=== PATIENT | female | born 1970 | race Caucasian/White ===

== ENCOUNTER → 2023-09-26 10:43 | Outpatient (REF) | payer BC, SELFPAY | LOC: HWWDC 10:43 | PROVIDERS: ATTENDING PHYSICIAN Obstetrics & Gynecology; FAMILY PHYSICIAN Family Medicine | DX: Z12.31 Encounter for screening mammogram for malignant neoplasm of breast (principal) | CPT/HCPCS: 77063; 77067 ==

== ENCOUNTER → 2023-10-10 09:35 | Outpatient (REF) | payer BC, SELFPAY | LOC: HWRAD 09:35 | PROVIDERS: ATTENDING PHYSICIAN Nurse Practitioner Family | DX: M54.41 Lumbago with sciatica, right side (principal) | CPT/HCPCS: 72100; 72202; 72220 ==

== ENCOUNTER 2024-04-22 20:37 | Day surgery (SDC) | payer BC, SELFPAY ==
[2024-04-22 16:06] VITALS: BP 109/78
--- NOTE | 2024-04-22 16:13 | ED.GENMED ---
ED Provider Triage
<Noah Escobedo PA-C - Last Filed: 04/22/24 16:16>
-
Patient seen by provider in Triage?: Seen in Triage
53 year old female with intermittent upper abdominal pain worsening over several weeks. Today's episode was much worse. Seem to be made worse with eating. No regular alcohol use. No significant NSAID use. The pain radiates to her back. She
denies chest pain or shortness of breath. She did have outpatient labs drawn last week which demonstrated an elevated lipase and ALT. Spoke with the family doctor today and they sent her in for evaluation. No prior abdominal surgical history
Patient notes gastric pain. Consider cholecystitis versus cholelithiasis versus pancreatitis. Ultrasound of the abdomen ordered. Will check CBC CMP lipase
Patient received medical screening examination by a health care provider through triage. Further evaluation warranted.
History of Present Illness
<Noah Escobedo PA-C - Last Filed: 04/22/24 16:16>
General
Chief Complaint: Abdominal Symptoms
Time Seen by Provider: 04/22/24 17:35
<Sean Mojica MD - Last Filed: 04/22/24 21:34>
General
Source: patient
Exam Limitations: none
Nursing documentation reviewed up to this point in time: agreed with
History of Present Illness
History of Present Illness:
Patient presents to ED secondary to sudden onset of upper abdominal pain associated with nausea and vomiting, while she was at work this afternoon. Abdominal pain described as sharp, radiating to shoulder, without any alleviating or exacerbating
factors. Denies trauma. Denies fever or chills. Patient reports having had protein drink, approximately 5 hours prior to onset of her symptoms. However, patient does state that she has had similar symptoms in the past, which have resolved
spontaneously within short period time. At the time of exam ED, patient states that her pain resolved completely.
Review of Systems
<Sean Mojica MD - Last Filed: 04/22/24 21:34>
Review of Systems
Allergies reviewed?: Yes
All Other Systems: ROS reviewed and negative except as documented in HPI and ROS
Constitutional: Reports no symptoms
Respiratory: Reports no symptoms; Denies trouble breathing
Cardiac: Reports no symptoms
ABD/GI: Reports abdominal pain, nausea and vomiting
: Reports no symptoms
Musculoskeletal: Reports no symptoms
Skin: Reports no symptoms
Neurological: Reports no symptoms
Phy Exam
<Sean Mojica MD - Last Filed: 04/22/24 21:34>
Physical Exam
Physical Exam:
Physical Exam
General: no apparent distress, not acutely ill. afebrile
Head: nc/at. eomi
Neck: supple. no meningeal signs.
Heart: s1/s2 regular rate and rhythm, no murmur. equal radial pulses.
Lungs: no acute respiratory distress. clear bilaterally
Abdomen: normal bowel sounds. not tender.
Neuro: alert and oriented. no focal neurological deficits
Skin: no rash
Psychiatric: well kept. interactive and cooperative
Extremities: no edema. no calf tenderness
Course
<Noah Escobedo PA-C - Last Filed: 04/22/24 16:16>
Orders/Labs/Results
Orders:
Orders
04/22/24 Breakfast
Clear Liquid
At Your Request: Full Participation
Does patient need a safe tray?: No
04/22/24 16:08
US Abdomen Complete/Upper Urgent
Comment:
Reason For Exam: upper abdominal pain
04/22/24 16:20
Complete Blood Count/With Diff Urgent
Comprehensive Metabolic Panel Urgent
Lipase Urgent
04/22/24 19:54
Admit/Transfer Patient As Directed
Co-Sign Provider:
Level of Care: Inpatient admission
Assign to:: Medical/Surgical
Physician / Group: Wilberto
Diagnosis: Symptomatic Cholelithiasis +/- Choledocholithiasis
Reason for Hospitalization: Symptomatic Cholelithiasis +/- Choledocholithiasis
Expected length of stay greater than two midnights?: Yes
ELOS- Estimated Length of Stay in days: 3
I certify the patient meets the requirements for IP care: Yes
PRN Pain Medication Management As Directed
May give lesser potent ordered pain med per pt: Yes
preference::
Protocol:: Medication orders for pain may be administered in a
manner that supports deferring to patient preference
when the pt is:
- Requesting an ordered lesser potent pain medication.
Least to most potent pain medications are defined
as: acetaminophen < NSAID < tramadol < opioids
(morphine, oxycodone, hydromorphone).
- Requesting a lesser dose of the same medication IF
ORDERED.
- Requesting a less intrusive route of administration
if both routes are prescribed by the provider (PO <
IV).
04/22/24 19:55
Code Status As Directed
Resuscitation Status: Full Code
04/22/24 21:23
Acetaminophen [Tylenol] 650 mg PO Q6HPRN PRN
HYDROmorphone [Dilaudid] 0.5 mg IV Q4HPRN PRN
Ketorolac [Toradol] 10 mg IV Q6HPRN PRN
Lactated Ringers [Lr] 1,000 ml IV 80 mls/hr
Ondansetron Injectable [Zofran] 4 mg IV Q6HPRN PRN
04/22/24 21:23
GASTROINTESTINAL CONSULT Routine
Consulting Provider: Jae Gamble
Was physician already notified: Yes
Reason for consult: Symptomatic Cholelithiasis +/- Choledocholithiasis
SURGICAL CONSULT Routine
Consulting Provider: Marcel Strickland
Was physician already notified: Yes
Reason for consult: Symptomatic Cholelithiasis +/- Choledocholithiasis
Activity As Directed
Activity Level: Ambulate
With Assistance
I/O [Intake/ Output] As Directed
Frequency: Per unit guidelines
Pneumatic Compression Sleeves As Directed
Type: Knee high
Vital Signs As Directed
Frequency: Per unit guidelines
Oxygen Therapy [O2 Therapy] [RESP] Routine
Titrate/Wean O2 to maintain O2 sat greater than (%): 94
DX Deep Vein Thrombosis Video Routine
04/23/24 Breakfast
NPO
Allow oral meds: Yes
Allow clear liquids: Sips of Clears
NPO for procedure after (time): Midnight
Basic Metabolic Panel IN AM
Complete Blood Count/No Diff IN AM
LFT [Wjmjf-Omtq-Phttgfr] IN AM
04/23/24 08:00
Pantoprazole [Protonix IV] 40 mg IV DAILY
Abnormal Lab Results
04/22/24
16:20
MCH 31.3 H pg
(27.0-31.0)
MPV 13.7 H fL
(7.4-10.4)
Absolute Neuts (auto) 8.2 H 10^3/uL
(1.4-6.5)
Neutrophils % 78.8 H %
(42.2-75.2)
Lymphocytes % 16.4 L %
(20.5-51.1)
AST 509 H* U/L
(14-36)
ALT 229 H U/L
(0-35)
04/22/24 16:20
04/22/24 16:20
Vital Signs
Initial and Last Documented VS:
Initial Vital Signs
Temp Pulse Resp BP Pulse Ox
98.4 F 75 18 109/78 99
04/22/24 16:06 04/22/24 16:06 04/22/24 16:06 04/22/24 16:06 04/22/24 16:06
Last Documented Vital Signs
Temp Pulse Resp BP Pulse Ox
98.1 F 68 16 122/70 98
04/22/24 21:30 04/22/24 21:30 04/22/24 21:30 04/22/24 21:30 04/22/24 21:30
<Sean Mojica MD - Last Filed: 04/22/24 21:34>
Orders/Labs/Results
Orders:
Orders
04/22/24 Breakfast
Clear Liquid
At Your Request: Full Participation
Does patient need a safe tray?: No
04/22/24 16:08
US Abdomen Complete/Upper Urgent
Comment:
Reason For Exam: upper abdominal pain
04/22/24 16:20
Complete Blood Count/With Diff Urgent
Comprehensive Metabolic Panel Urgent
Lipase Urgent
04/22/24 19:54
Admit/Transfer Patient As Directed
Co-Sign Provider:
Level of Care: Inpatient admission
Assign to:: Medical/Surgical
Physician / Group: Wilberto
Diagnosis: Symptomatic Cholelithiasis +/- Choledocholithiasis
Reason for Hospitalization: Symptomatic Cholelithiasis +/- Choledocholithiasis
Expected length of stay greater than two midnights?: Yes
ELOS- Estimated Length of Stay in days: 3
I certify the patient meets the requirements for IP care: Yes
PRN Pain Medication Management As Directed
May give lesser potent ordered pain med per pt: Yes
preference::
Protocol:: Medication orders for pain may be administered in a
manner that supports deferring to patient preference
when the pt is:
- Requesting an ordered lesser potent pain medication.
Least to most potent pain medications are defined
as: acetaminophen < NSAID < tramadol < opioids
(morphine, oxycodone, hydromorphone).
- Requesting a lesser dose of the same medication IF
ORDERED.
- Requesting a less intrusive route of administration
if both routes are prescribed by the provider (PO <
IV).
04/22/24 19:55
Code Status As Directed
Resuscitation Status: Full Code
04/22/24 21:23
Acetaminophen [Tylenol] 650 mg PO Q6HPRN PRN
HYDROmorphone [Dilaudid] 0.5 mg IV Q4HPRN PRN
Ketorolac [Toradol] 10 mg IV Q6HPRN PRN
Lactated Ringers [Lr] 1,000 ml IV 80 mls/hr
Ondansetron Injectable [Zofran] 4 mg IV Q6HPRN PRN
04/22/24 21:23
GASTROINTESTINAL CONSULT Routine
Consulting Provider: Jae Gamble
Was physician already notified: Yes
Reason for consult: Symptomatic Cholelithiasis +/- Choledocholithiasis
SURGICAL CONSULT Routine
Consulting Provider: Marcel Strickland
Was physician already notified: Yes
Reason for consult: Symptomatic Cholelithiasis +/- Choledocholithiasis
Activity As Directed
Activity Level: Ambulate
With Assistance
I/O [Intake/ Output] As Directed
Frequency: Per unit guidelines
Pneumatic Compression Sleeves As Directed
Type: Knee high
Vital Signs As Directed
Frequency: Per unit guidelines
Oxygen Therapy [O2 Therapy] [RESP] Routine
Titrate/Wean O2 to maintain O2 sat greater than (%): 94
DX Deep Vein Thrombosis Video Routine
04/23/24 Breakfast
NPO
Allow oral meds: Yes
Allow clear liquids: Sips of Clears
NPO for procedure after (time): Midnight
Basic Metabolic Panel IN AM
Complete Blood Count/No Diff IN AM
LFT [Lidyu-Wgfe-Nhyzoct] IN AM
04/23/24 08:00
Pantoprazole [Protonix IV] 40 mg IV DAILY
Abnormal Lab Results
04/22/24
16:20
MCH 31.3 H pg
(27.0-31.0)
MPV 13.7 H fL
(7.4-10.4)
Absolute Neuts (auto) 8.2 H 10^3/uL
(1.4-6.5)
Neutrophils % 78.8 H %
(42.2-75.2)
Lymphocytes % 16.4 L %
(20.5-51.1)
AST 509 H* U/L
(14-36)
ALT 229 H U/L
(0-35)
04/22/24 16:20
04/22/24 16:20
Vital Signs
Initial and Last Documented VS:
Initial Vital Signs
Temp Pulse Resp BP Pulse Ox
98.4 F 75 18 109/78 99
04/22/24 16:06 04/22/24 16:06 04/22/24 16:06 04/22/24 16:06 04/22/24 16:06
Last Documented Vital Signs
Temp Pulse Resp BP Pulse Ox
98.1 F 68 16 122/70 98
04/22/24 21:30 04/22/24 21:30 04/22/24 21:30 04/22/24 21:30 04/22/24 21:30
<Sean Mojica MD - Last Filed: 04/22/24 21:34>
MDM/Problems Addressed
MDM/Problems Addressed:
Ultrasound result as well as abnormal blood work reviewed with on-call GI physician, . Recommends admission for further workup, including likely ERCP.
<Sean Mojica MD - Last Filed: 04/22/24 21:34>
*Critical Care Note
Total Time (30-74mins, 75-104mins- exclusive of procedures): Not Applicable
ED Attending Note
<Noah Escobedo PA-C - Last Filed: 04/22/24 16:16>
-
Portions of this chart may have been created with voice recognition software.� Occasional wrong word or��sound alike� substitutions may have occurred due to the inherent limitations of voice recognition software.
Discharge Plan
Departure
Patient Disposition: Admit
Date of Disposition: 04/22/24
Time of Disposition: 19:31
Presentation/result/management discussed w/ accepting MD/DO: Hospitalist
Discharge Problem:
Gallstone, Abnormal LFTs
Interventions
Interventions:
*Risk Screen - Suicide Last Done: 04/22/24 16:06
*General Assessment Last Done: 04/22/24 16:06
*Neglect/Abuse Screening Last Done: 04/22/24 16:06
ED- Fall Risk Assessment Last Done: 04/22/24 17:20
*ED COVID-19 Vaccine History Last Done: 04/22/24 17:20
NT-Ytwsqz-Bzxxxwthpe Assessment Last Done: 04/22/24 17:20
[2024-04-22 16:48] LABS: % Immature Granulocytes 0.3 % (0-0.5); % Lymphocytes 16.4 % (20.5-51.1); % Monocytes 4.5 % (1.7-9.3); % Neutrophils 78.8 % (42.2-75.2); Absolute Lymphocytes 1.7 10^3/uL (1.2-3.4); Absolute Monocytes 0.5 10^3/uL (0.1-0.6); Absolute Neutrophils 8.2 10^3/uL (1.4-6.5); Hematocrit 42.3 % (37.0-47.0); Hemoglobin 14.1 g/dL (12.0-16.0); Mean Corp Hgb Conc. 33.3 g/dL (33.0-37.0); Mean Corpuscular Hgb 31.3 pg (27.0-31.0); Mean Platelet Volume 13.7 fL (7.4-10.4); Nucleated Red Blood Cells % 0 %; Platelet Count 173 10^3/uL (130-400); Red Cell Dist. Width 12.7 % (11.5-14.5); White Blood Cell Count 10.4 10^3/uL (4.8-10.8)
[2024-04-22 17:04] LABS: ALT (SGPT) 229 U/L (0-35); AST (SGOT) 509 U/L (14-36); Albumin 4.1 g/dl (3.5-5.0); Alkaline Phosphatase 116 U/L (38-126); Blood Urea Nitrogen 11 mg/dl (7-17); Calcium 8.6 mg/dl (8.4-10.2); Carbon Dioxide 28 mmol/L (22-30); Chloride 105 mmol/L (98-107); Glucose 99 mg/dl (70-99); Lipase 167 U/L (23-300); Potassium 3.8 mmol/L (3.5-5.1); Sodium 141 mmol/L (135-145); Total Bilirubin 0.8 mg/dl (0.2-1.3); Total Protein 6.7 g/dl (6.3-8.2); eGFR > 60.00
[2024-04-22 17:20] VITALS: BMI 25.1
[2024-04-22 17:54] VITALS: BP 104/72
[2024-04-22 18:00] VITALS: BP 110/64
--- NOTE | 2024-04-22 19:59 | HPS.HSE ---
Family Physician
-
Family Physician: Yash Mayers
Chief Complaint
-
Abd Pain
History of Present Illness
Patient is a 53y F with no significant PMH who presents to ED complaining of abdominal pain. Patient states that she has been having intermittent abdominal pain over the past several weeks. She states that pain has been severe at times - and
occasionally associated with nausea - but has always been brief and self-limited. Pain has not occurred strictly following meals. Today, patient had severe episode of pain in the epigastric area radiating straight through to her back. She had N/V
x 2 episodes at home - with no improvement in her symptoms. She denies any fevers / chills. No other associated symptoms.
In the ED, patient is experiencing some mild discomfort.
Medical History
Past Medical History
Past Medical History: Reports None
Past Surgical History: Reports None
Social History
Tobacco: Non-smoker
Alcohol: Occasional
Drug: None
Family History
Family History: Other (Father: Cirrhosis)
Allergies / Home Medications
Allergies reflects when Allergies were last updated in [facility].
Home Medications with original date entered in [facility]
Allergy/Medication List:
Allergies
Allergy/AdvReac Type Severity Reaction Status Date / Time
Penicillins Allergy Rash/ITCHIN Verified 04/22/24 16:06
G
Home Medications
acetaminophen 325 mg tablet (Tylenol) 650 mg PO Q6HPRN PRN mild pain 04/22/24
calcium 200 mg (as carbonate)-magnesium 100 mg chewable tablet (John-Mag) 1 tab PO HSPRN PRN restless leg/constipation 04/22/24
estradiol 0.075 mg/24 hr semiweekly transdermal patch 1 patch transdermal SUWE 04/22/24
ibuprofen 200 mg tablet (Advil) 400 mg PO Q8HPRN PRN mild pain 04/22/24
progesterone micronized 100 mg capsule 200 mg PO HS 04/22/24
therapeutic multivitamin 1 tab PO DAILY 04/22/24
Review of Systems
-
History Source: Patient
A 12 point ROS was completed and negative except as noted: Yes
Constitutional: Denies Fever or Chills
Respiratory: Denies Cough or Trouble Breathing
Cardiac: Denies Chest Pain or Palpitations
Abdomen/GI: Reports Abdominal Pain, Nausea and Vomiting; Denies Diarrhea, Bloody Stools, Black Stools or Anorexia
: Denies Dysuria or Frequency
Musculoskeletal: Denies Joint Pain or Edema
Neurological: Denies Dizzy or Headache
Psych: Denies Depression or Anxiety
Physical Exam
Vital Signs
Vital Signs
Temp Pulse Resp BP Pulse Ox
98.4 F 75 18 110/64 96
04/22/24 16:06 04/22/24 16:06 04/22/24 16:06 04/22/24 18:00 04/22/24 18:00
Physical Exam
General: Other (53y F in no acute distress.)
HEENT: Moist mucous membranes and PERRLA
Respiratory: Clear; No Wheezes, Rales or Rhonchi
Cardiac: S1/S2 and Regular Rhythm; No Murmur
GI: Soft, Non Distended, Normal Bowel Sounds and Other (Mild epigastric tenderness without rebound / guarding.)
Musculoskeletal: No Clubbing, No Cyanosis and No Edema
Neuro: AO x 3
Laboratory Results
-
04/22/24 16:20
04/22/24 16:20
Laboratory Results
Total Bilirubin 0.8 mg/dl (0.2-1.3) 04/22/24 16:20
AST 509 U/L (14-36) H* 04/22/24 16:20
ALT 229 U/L (0-35) H 04/22/24 16:20
Alkaline Phosphatase 116 U/L (38-126) 04/22/24 16:20
Lipase 167 U/L (23-300) 04/22/24 16:20
Impression/Plan
-
A/P: Patient is a 53y F with no known medical issues who presents to ED complaining of epigastric pain.
Symptomatic Cholelithiasis
Abnormal LFTs / Transaminitis
- Admit for further evaluation and treatment.
- Intermittent symptoms x weeks or more per patient - much more severe today.
- US shows gallstones without CBD dilation, wall thickening or pericholecystic fluid.
- No elevations in bili or alk phos to suggest obstructive process.
- NPO after midnight. IVF. Pain control and antiemetics.
- GI and Surgery consulted.
- Patient would likely benefit from eventual cholecystectomy.
DVT Prophylaxis: SCDs
Code Status: Full
[2024-04-22 20:00] VITALS: BP 121/79
[2024-04-22 21:30] VITALS: BP 122/70; BMI 22.9
--- NOTE | 2024-04-22 21:30 | PTCARENOTE ---
Patient arrived from the ED via stretcher. Patient ambulated into the room. AAOx3, VSS. Patient has no complaints of pain at this time. Oriented to the room and informed about medications/pain medications. Call black is within reach.
[2024-04-22] MEDS: LR 1000 IV (21:50)
[2024-04-22 23:31] VITALS: BP 116/68
[2024-04-23] VITALS (9 sets, daily range): BP systolic 113–135; BP diastolic 63–75
[2024-04-23] MEDS: TORADOL 10 MG IV ×2 (07:21→20:37)
--- NOTE | 2024-04-23 08:05 | CON.GS ---
Consultation
-
Reason for Consultation: Gallstones, abdominal pain
Medical History
-
Chief Complaint: Epigastric abdominal pain, nausea vomiting
History of Present Illness:
53-year-old female who presents to the emergency department secondary to the acute onset of epigastric/right upper quadrant abdominal pain with nausea and vomiting.
She has had mild episodes over the past 1 to 2 months occurring intermittently. Recent outpatient follow-up with her primary sent for routine laboratory testing and ultrasound of the abdomen which was scheduled for next week. Yesterday at work she
had her worst episode yet with persistent pain and nausea and vomiting prompting emergency department evaluation. There is still some tenderness and discomfort this morning but her nausea has subsided.
Past Medical History
Past Medical History: None
Past Surgical History: Other (Uterine ablation, deviated septum correction)
Social History
Tobacco: Non-Smoker
Alcohol: Occasional
Family History
Family History: Reviewed & Noncontributory (No history of gallbladder/gallstone disease reported)
Allergies / Home Medications
Allergy/AdvReac Type Severity Reaction Status Date / Time
Penicillins Allergy Rash/ITCHIN Verified 04/22/24 16:06
G
�Medication �Instructions �Recorded �Confirmed �Type
acetaminophen 325 mg tablet 650 mg PO Q6HPRN PRN mild pain 04/22/24 04/22/24 History
(Tylenol)
calcium 200 mg (as 1 tab PO HSPRN PRN restless 04/22/24 04/22/24 History
carbonate)-magnesium 100 mg leg/constipation
chewable tablet (John-Mag)
estradiol 0.075 mg/24 hr 1 patch transdermal SUWE 04/22/24 04/22/24 History
semiweekly transdermal patch
ibuprofen 200 mg tablet (Advil) 400 mg PO Q8HPRN PRN mild pain 04/22/24 04/22/24 History
progesterone micronized 100 mg 200 mg PO HS 04/22/24 04/22/24 History
capsule
therapeutic multivitamin 1 tab PO DAILY 04/22/24 04/22/24 History
Review of Systems
-
History Source: Patient
All other systems: Negative unless noted
A 10 point review of systems was completed, and was negative except as per HPI.
Physical Exam
Vital Signs
Temp Pulse Resp BP Pulse Ox
98.3 F 60 16 116/68 100
04/22/24 23:31 04/22/24 23:31 04/22/24 23:31 04/22/24 23:31 04/22/24 23:31
04/22/24 04/23/24 04/24/24
06:59 06:59 06:59
Actual Weight 66.281 kg
Body Mass Index (BMI) 22.9
Lab Results
WBC 10.4 10^3/uL (4.8-10.8) 04/22/24 16:20
Hgb 14.1 g/dL (12.0-16.0) 04/22/24 16:20
Hct 42.3 % (37.0-47.0) 04/22/24 16:20
Plt Count 173 10^3/uL (130-400) 04/22/24 16:20
Abs Immat Gran (auto) 0.0 10^3/uL (0-0.05) 04/22/24 16:20
Neutrophils % 78.8 % (42.2-75.2) H 04/22/24 16:20
Physical Exam
General: Well Developed, Well Nourished, No Apparent Distress and Comfortable
HEENT: Normocephalic, Anicteric and Moist Mucous Membranes
Respiratory: Non Labored Respirations
GI: Soft, Non Distended and Tender (Tenderness palpation epigastrium or right upper quadrant with some voluntary guarding on deeper palpation.)
Skin: Warm
Neuro: AO x 3
Psych: Calm
Data Reviewed
-
Ultrasound: Image Personally Visualized and interpreted, Report Reviewed by me and Discussed with Patient
Labs: Labs Reviewed by me and Discussed with Patient
Assessment / Plan
-
Assessment: 53-year-old female with probable acute calculus cholecystitis and secondarily elevated AST/ALT. WBC 10.4 but neutrophil shift.
Ultrasound imaging confirms small gallstones, distended gallbladder and what appears to be pericholecystic edema. No biliary ductal dilation. Persistent tenderness on examination this a.m.
Reviewed with patient history and workup consistent with probable acute calculus cholecystitis. We discussed operative as well as nonoperative management options. In the setting of persistent abdominal pain recommended pursuing cholecystectomy
which patient was in agreement with.
Laparoscopic cholecystectomy with cholangiogram was reviewed in detail including operative technique and alternative management options. The potential benefits and risks of the procedure were reviewed in detail, including but not limited to
infectious or wound healing complications, bleeding, bile leak, injury to biliary tree, iatrogenic injury to surrounding viscera and post cholecystectomy syndrome. Reviewed the typical postoperative recovery.
Any of the patient's concerns or questions were fully addressed and informed consent was obtained.
Plan: Patient has been added onto the OR schedule today for lap davidson with cholangiogram -timing for today pending OR availability
N.p.o.
IV fluids
Levaquin/Flagyl for empiric biliary coverage
Updated GI service -can hold on consultation pending cholangiogram results as if normal would not need further testing/imaging studies or need for endoscopic evaluation
[2024-04-23] MEDS: FLAGYL 500 MG 100 IV ×2 (08:37→17:18)
[2024-04-23] MEDS: NSS (PRESERVATIVE FREE) 10 ML IV (08:38)
[2024-04-23] MEDS: PROTONIX IV 40 MG IV (08:38)
[2024-04-23 08:47] LABS: Hematocrit 41.7 % (37.0-47.0); Hemoglobin 13.5 g/dL (12.0-16.0); Mean Corp Hgb Conc. 32.4 g/dL (33.0-37.0); Mean Corpuscular Hgb 31.5 pg (27.0-31.0); Mean Corpuscular Volume 97.2 fL (81.0-99.0); Platelet Count 157 10^3/uL (130-400); Red Blood Cell Count 4.29 10^6/uL (4.20-5.40); Red Cell Dist. Width 12.8 % (11.5-14.5); White Blood Cell Count 4.5 10^3/uL (4.8-10.8)
[2024-04-23 09:23] LABS: ALT (SGPT) 509 U/L (0-35); AST (SGOT) 599 U/L (14-36); Albumin 3.5 g/dl (3.5-5.0); Alkaline Phosphatase 118 U/L (38-126); Blood Urea Nitrogen 6 mg/dl (7-17); Calcium 8.3 mg/dl (8.4-10.2); Carbon Dioxide 26 mmol/L (22-30); Chloride 108 mmol/L (98-107); Direct Bilirubin 0.1 mg/dl (0.0-0.4); Estimated Creatinine Clearance 107 ml/min; Glucose 80 mg/dl (70-99); Potassium 3.8 mmol/L (3.5-5.1); Sodium 140 mmol/L (135-145); Total Bilirubin 0.8 mg/dl (0.2-1.3); Total Protein 5.9 g/dl (6.3-8.2); eGFR > 60.00
[2024-04-23] MEDS: LR 1000 IV (10:44)
[2024-04-23] MEDS: LEVAQUIN 100 IV (10:44)
--- NOTE | 2024-04-23 11:46 | W.PN.HOSP.TC ---
Today's Communication/Plan
-
IVF
IV abx
OR today
Assessment / Plan
Assessment / Plan
A/P: Patient is a 53y F with no known medical issues who presents to ED complaining of epigastric pain.
Symptomatic Cholelithiasis
Abnormal LFTs / Transaminitis
- Intermittent symptoms x weeks or more per patient - much more severe on admission
- US shows gallstones without CBD dilation, wall thickening or pericholecystic fluid.
- Agree with GI input after intraoperative cholangiogram
- Continue with IV antibiotics. Pain control. Antinausea meds as needed.
- Trend LFTs
- Plan for OR later today
DVT Prophylaxis: SCDs
Code Status: Full
Anticipated Discharge: Within 24 hours
Subjective/Interval History
-
Date of Service: April 23, 2024
States improvement in abdominal pain compared to yesterday.
Objective Data
-
Labs:
Laboratory Results
04/23/24
07:13
WBC 4.5 L
Hgb 13.5
Hct 41.7
Plt Count 157
Sodium 140
Potassium 3.8
Chloride 108 H
Carbon Dioxide 26
BUN 6 L
Creatinine 0.6
Glucose 80
Calcium 8.3 L
Total Bilirubin 0.8
AST 599 H*
ALT 509 H*
Alkaline Phosphatase 118
Vital Signs:
Vital Signs
Temp Pulse Resp BP Pulse Ox
97.8 F 69 18 119/75 98
04/23/24 08:22 04/23/24 08:22 04/23/24 08:22 04/23/24 08:22 04/23/24 08:22
I&O
04/22/24 04/23/24 04/24/24
06:59 06:59 06:59
Intake Total 1280 / 1280
Balance 1280 / 1280
Physical Exam
-
General: Well Developed and No Apparent Distress
HEENT: Normocephalic, Atraumatic and Moist Mucous Membranes
Respiratory: Clear to Auscultation
Cardiac: Regular Rhythm and S1/S2; Negative Murmur, Rub or Gallop
GI: Soft, Nontender, Nondistended and Normal Bowel Sounds; Negative Organomegaly
Rectal: Deferred by Provider
Musculoskeletal: No Clubbing, No Cyanosis and No Edema
Skin: Negative Rash
Neuro: Awake, Alert, Oriented, AO x 3, No Motor Deficits and Nonfocal/Grossly Intact
Psych: Calm
--- NOTE | 2024-04-23 12:40 | W.SUR.PREOP ---
Pre-Operative Surgical Note
-
I have examined this patient prior to the performance of the scheduled procedure.
The patient's condition is unchanged from the time of the current History and
Physical and the patient is able to undergo the scheduled procedure.
--- NOTE | 2024-04-23 13:08 | CM ---
Nneka admitted with cholecystitis with plan for OR today.
CM met with Nneka at bedside to complete IA. She lives with her in a ranch style home with no entry steps. They are both (I) amb and adls.
Plan: CM to follow post-op for any discharge needs. Discharge to home after cholecystectomy.
PCP: Yash Mayers
Pharmacy: [facility] on [facility] in [place]
--- NOTE | 2024-04-23 13:50 | W.IMMPOSTOP ---
Addendum entered and electronically signed by Marcel Strickland MD 04/23/24 13:59:
#[id number]
Original Note:
Surgical Immed Post Op Note
-
Primary Surgeon: Em
Assisting Surgeon: Lokesh POLLOCK
Pre-op Diagnosis: Acute calculus cholecystitis
Post-op Diagnosis: Acute calculus cholecystitis
Procedure Performed: Laparoscopic cholecystectomy with intraoperative cholangiogram
Anesthesia Type: GETA +0.25% Marcaine
Specimen / Cultures: Gallbladder/none
Estimated Blood Loss: 4 mL
Complications: None immediate
Operative Findings: Physiologically distended gallbladder with some edema. No adhesions. Intraoperative cholangiogram with probable sludge/thick bile but flushed with pressure on cholangiogram and duct subsequently cleared with good emptying.
Cholecystectomy completed intact. Extracted at epigastric 12 mm trocar site.
Plan: Low-fat diet as tolerated
Routine postoperative supportive care
DC home when tolerating p.o., ambulating, pain controlled
--- NOTE | 2024-04-23 14:34 | W.PN.UPDATE ---
Update Note
Progress Note Update
Operative note noted including intraoperative cholangiogram, with probable sludge, though cleared without obvious filling defect now. Will hold on further GI workup, continue postoperative care per surgery.
--- NOTE | 2024-04-23 14:58 | PTCARENOTE ---
Pt returned from PACU. Report from Malou SHORT.Pt awake,alert and oriented x3. Pt has 4 lap sites and puncture site all with surgi glue, CDI. Pt VSS 96% on RA. No c/o pain at this time. Pt reoriented to room,call black within reach, plan of care
continues.
[2024-04-23] MEDS: ZOFRAN 4 MG IV (15:19)
[2024-04-23] MEDS: ROXICODONE 5 MG PO (23:50)
[2024-04-24] MEDS: FLAGYL 500 MG 100 IV (02:38)
[2024-04-24 03:27] VITALS: BP 114/79
[2024-04-24] MEDS: LR 1000 IV (04:29)
[2024-04-24 07:29] LABS: % Basophils 0.1 % (0-2); % Immature Granulocytes 0.5 % (0-0.5); % Lymphocytes 18.8 % (20.5-51.1); % Monocytes 5.8 % (1.7-9.3); % Neutrophils 74.8 % (42.2-75.2); Absolute Immature Granulocytes 0.1 10^3/uL (0-0.05); Absolute Lymphocytes 2.1 10^3/uL (1.2-3.4); Absolute Monocytes 0.6 10^3/uL (0.1-0.6); Absolute Neutrophils 8.2 10^3/uL (1.4-6.5); Hematocrit 40.1 % (37.0-47.0); Hemoglobin 12.8 g/dL (12.0-16.0); Mean Corp Hgb Conc. 31.9 g/dL (33.0-37.0); Mean Corpuscular Hgb 30.9 pg (27.0-31.0); Mean Corpuscular Volume 96.9 fL (81.0-99.0); Nucleated Red Blood Cells % 0 %; Platelet Count 157 10^3/uL (130-400); Red Blood Cell Count 4.14 10^6/uL (4.20-5.40); Red Cell Dist. Width 12.9 % (11.5-14.5); White Blood Cell Count 10.9 10^3/uL (4.8-10.8)
[2024-04-24 07:30] LABS: ALT (SGPT) 295 U/L (0-35); AST (SGOT) 172 U/L (14-36); Albumin 3.3 g/dl (3.5-5.0); Alkaline Phosphatase 92 U/L (38-126); Blood Urea Nitrogen 5 mg/dl (7-17); Calcium 8.6 mg/dl (8.4-10.2); Carbon Dioxide 22 mmol/L (22-30); Chloride 109 mmol/L (98-107); Estimated Creatinine Clearance 107 ml/min; Glucose 82 mg/dl (70-99); Potassium 3.9 mmol/L (3.5-5.1); Sodium 140 mmol/L (135-145); Total Bilirubin 0.7 mg/dl (0.2-1.3); Total Protein 5.6 g/dl (6.3-8.2); eGFR > 60.00
[2024-04-24 07:33] VITALS: BP 143/79
[2024-04-24] MEDS: NSS (PRESERVATIVE FREE) 10 ML IV (08:06)
[2024-04-24] MEDS: PROTONIX IV 40 MG IV (08:06)
--- NOTE | 2024-04-24 09:32 | W.PN.GS2 ---
Addendum entered and electronically signed by Victor Hugo Victoria MD 04/24/24 12:04:
I saw and examined the patient.
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
Comment: Doing well POD1, no complaints. Anmol diet, ambulating, pain controlled. Exam approp. OK for DC from surg standpoint
Original Note:
Today's Communication / Plan
-
dispo planning
Assessment / Plan
-
53 yo female who presented with acute calculous cholecystitis and is POD #1 lap davidson with IOC with probable sludge which was cleared
AFVSS
Tolerating diet
Bilirubin remains normal, transaminases now trending down
Mild reactive leukocytosis
--Continue current diet
--PO analgesics prn
--No further abx
--Clear for discharge from surgical standpoint
Subjective Data
-
Date of Service: April 24, 2024
Patient seen and examined at bedside with Dr. Victoria. Minimal post op discomfort. Has ambulated the hallways without difficulty. Tolerating diet without n/v. Passing flatus.
Objective Data
-
Intake and Output
04/23/24 04/24/24 04/25/24
06:59 06:59 06:59
Intake Total 1280 / 1280 2260 / 2260
Balance 1280 / 1280 2260 / 2260
Intake:
Oral fluids 480 / 480 900 / 900
IV fluids (Total) 800 / 800 960 / 960
IV piggybacks 400 / 400
Other:
Number of approximated MODERATE 2 3
amounts of urine
Vital Signs
Temp Pulse Resp BP Pulse Ox
99.5 F 68 18 143/79 97
04/24/24 07:33 04/24/24 07:33 04/24/24 07:33 04/24/24 07:33 12/06/24 07:33
Lab Results
04/24/24 06:04
04/24/24 06:04
Calcium 8.6 mg/dl (8.4-10.2) 04/24/24 06:04
Total Bilirubin 0.7 mg/dl (0.2-1.3) 04/24/24 06:04
Direct Bilirubin 0.1 mg/dl (0.0-0.4) 04/23/24 07:13
AST 172 U/L (14-36) H 04/24/24 06:04
ALT 295 U/L (0-35) H 04/24/24 06:04
Alkaline Phosphatase 92 U/L (38-126) 04/24/24 06:04
Total Protein 5.6 g/dl (6.3-8.2) L 04/24/24 06:04
Albumin 3.3 g/dl (3.5-5.0) L 04/24/24 06:04
Physical Exam
-
NAD
ABD soft, minimal incisional tenderness, ND
Incisions with intact glue, no erythema, well approximated
--- NOTE | 2024-04-24 10:52 | W.PN.HOSP.TC ---
Today's Communication/Plan
-
dc home
Assessment / Plan
Assessment / Plan
A/P: Patient is a 53y F with no known medical issues who presents to ED complaining of epigastric pain.
Symptomatic Cholelithiasis
Abnormal LFTs / Transaminitis
- Intermittent symptoms x weeks or more per patient - much more severe on admission
- US shows gallstones without CBD dilation, wall thickening or pericholecystic fluid.
- Status post laparoscopic cholecystectomy with intraoperative cholangiogram. Operative finding of Physiologically distended gallbladder with some edema. No adhesions. Intraoperative cholangiogram with probable sludge/thick bile but flushed
with pressure on cholangiogram and duct subsequently cleared with good emptying. Cholecystectomy completed intact.
-Significant improvement in LFTs. Discontinue antibiotics.
-Tolerating low fat diet. DC fluids.
DVT Prophylaxis: SCDs
Code Status: Full
More than 30 minutes spent in discharge including
Final examination of the patient
Summarizing hospital stay
Instructions for continuing care to all relevant caregivers
Preparation of discharge records, prescriptions, and referral forms
Total time spent (in minutes): 45
Anticipated Discharge: Today
Subjective/Interval History
-
Date of Service: April 24, 2024
Denies any abdominal pain or nausea or vomiting.
Objective Data
-
Labs:
Laboratory Results
04/24/24
06:04
WBC 10.9 H
Hgb 12.8
Hct 40.1
Plt Count 157
Sodium 140
Potassium 3.9
Chloride 109 H
Carbon Dioxide 22
BUN 5 L
Creatinine 0.6
Glucose 82
Calcium 8.6
Total Bilirubin 0.7
AST 172 H
ALT 295 H
Alkaline Phosphatase 92
Vital Signs:
Vital Signs
Temp Pulse Resp BP Pulse Ox
99.5 F 68 18 143/79 97
04/24/24 07:33 04/24/24 07:33 04/24/24 07:33 04/24/24 07:33 04/24/24 08:00
I&O
04/23/24 04/24/24 04/25/24
06:59 06:59 06:59
Intake Total 1280 / 1280 2260 / 2260
Balance 1280 / 1280 2260 / 2260
Physical Exam
-
General: Well Developed and No Apparent Distress
HEENT: Normocephalic, Atraumatic and Moist Mucous Membranes
Respiratory: Clear to Auscultation
Cardiac: Regular Rhythm and S1/S2; Negative Murmur, Rub or Gallop
GI: Soft, Nontender, Nondistended, Normal Bowel Sounds and Other (Surgical scar noted. No erythema or drainage.); Negative Organomegaly
Rectal: Deferred by Provider
Musculoskeletal: No Clubbing, No Cyanosis and No Edema
Skin: Negative Rash
Neuro: Awake, Alert, Oriented, AO x 3, No Motor Deficits and Nonfocal/Grossly Intact
Psych: Calm
--- NOTE | 2024-04-24 10:55 | W.DCSUMMARY ---
Discharge Summary
Discharge Data
Date of Admission: 04/22/24
Date of Discharge: 04/24/24
-
Pending Results: No
Hospital Course
53-year-old female with no significant past medical history was presented from home with right-sided abdominal pain. Patient with history of gallstone. Patient symptoms consistent with symptomatic biliary colic. Patient with abnormal LFTs. US
shows gallstones without CBD dilation, wall thickening or pericholecystic fluid. Patient symptoms consistent with cholecystitis. Patient was eval by general surgery. Patient was started on antibiotics with Levaquin and Flagyl. Patient was on IV
fluids, pain control and antinausea meds. Patient underwent to the operating room. Status post laparoscopic cholecystectomy with intraoperative cholangiogram. Operative finding of Physiologically distended gallbladder with some edema. No
adhesions. Intraoperative cholangiogram with probable sludge/thick bile but flushed with pressure on cholangiogram and duct subsequently cleared with good emptying. Cholecystectomy completed intact. Significant improvement in LFTs. Discontinue
antibiotics. Postop patient was tolerating diet without any difficulty. Patient was ambulating without difficulty. Afebrile. Patient be discharged home with recommendation to follow-up outpatient with primary surgeon.
Discharge Plan
-
Patient Disposition: Home (Routine Discharge)
Discharge Diagnosis/Procedures: Acute calculus cholecystitis. Laparoscopic cholecystectomy with cholangiogram
Condition: Good
Diet: As tolerated and Low Fat
Additional Diets: Smaller meals initially after surgery as abdominal bloating and distention may be common for the first few days
Activity: No strenuous activity
Additional Activity: No lifting over 15 to 20 pounds for 3 to 4 weeks postoperatively.
Driving Restrictions: No driving for 2 to 3 days or if using narcotics
Bathing Restrictions: OK to Shower
Blood Work: CMP in 7 days via primary doctor
Wound Care: Glue at surgical sites typically peels off in 2 to 3 weeks
Activity Restrictions/Additional Instructions:
�Marcel Strickland MD [facility] General Surgery
[facility]
[address] [place] [address], [address]
[place] [address]
[phone]
Initial Post-Operative Instructions for Laparoscopic/Robotic Surgery
The incision sites are sealed with a surgical glue dressing.� It is safe to shower at any time after surgery when the glue is dry.� Let shower water run over the incisions and then pat dry.
Glue dressing typically peels off in 2-3 weeks.
Abdominal/incisional pain and discomfort, shoulder/scapular pain, bloating, and mild nausea, as well as bruising/stiffness and swelling at the incision sites are common after surgery.� If felt to be excessive, notify us.
Please start postoperative pain management using over the counter medications such as Tylenol and Ibuprofen, per instructions on the bottle, as long as there are no medical reasons why you cannot take these medications.
Ice the incisions sites for 20 minutes every hour or so to help with postoperative incisional pain and reduce postoperative surgical site swelling.� Take care NOT to get an ice burn on the skin surface.
A warm heating pad is often helpful to alleviate shoulder/scapular back pains after laparoscopic procedures.� This pain typically dissipates 24-72hrs post op.
Resume a regular diet initially with smaller meal sizes for 24-36hrs after surgery if not experiencing postoperative nausea or significant bloating/distention.
Constipation is common following surgery and postoperative narcotic use.� May use a stool softener such as Colace (100 mg 2x day) to prevent constipation
If no BM 24hrs after surgery, recommend starting daily Miralax
If no BM in 24-48hrs after starting Miralax --> recommend then using a dose of magnesium citrate or milk of magnesia with a Senokot tablet to help alleviate post operative constipation as long as there is no nausea/vomiting and passing gas.
Resume all preoperative medications as prescribed, unless directed otherwise.
Do not drive or drink alcohol for 24 hrs after having anesthesia or while taking narcotic pain medications.
Resume regular daily light activities, such as walking, standing and going up/down stairs as tolerated within 24hrs of surgery.� Please refrain from lifting over 15-20 lbs or strenuous exercise until postoperative follow up visit &/or approximately
3-4 weeks.�
Call the office with a fever above 101� F, nausea with vomiting, severe abdominal pain, spreading redness and drainage from incision sites or with any concerns/questions.
If not arranged prior to surgery, please call the office to schedule or confirm your 10-14 day postoperative surgical follow-up office visit with Dr. Strickland.
Referrals:
Yash Mayers DO [Family Provider] - in less than 1 week
Marcel Strickland MD [Active] - in two to three weeks
Prescriptions:
Continued
acetaminophen [Tylenol] 325 mg Tablet
650 mg PO Q6HPRN PRN (Reason: mild pain)
estradiol 0.075 mg/24 hr Patch Semiweekly
1 patch TRANSDERMAL SUWE
therapeutic multivitamin Tablet
1 tab PO DAILY
ibuprofen [Advil] 200 mg Tablet
400 mg PO Q8HPRN PRN (Reason: mild pain)
progesterone micronized 100 mg Capsule
200 mg PO HS
John-Mag 200 mg calcium- 100 mg Tablet,Chewable
1 tab PO HSPRN PRN (Reason: restless leg/constipation)
Discharge Orders:
Discharge Patient (As Directed); Ordered 04/24/24
Ordered By: Trenton Chavez
Discharge Date and Time
Print Language: MALIAN
[2024-04-24 11:51] VITALS: BP 129/65
== END 2024-04-24 12:00 | disposition home or self-care (01) ==
LOC: SDS 20:37
PROVIDERS: Hospitalist; Physician Assistant; CONSULT PHYSICIAN Internal Medicine Gastroenterology; CONSULT PHYSICIAN Surgery; EMERGENCY PHYSICIAN Emergency Medicine; FAMILY PHYSICIAN Family Medicine
DX: K80.00 Calculus of gallbladder with acute cholecystitis without obstruction (principal); R74.01 Elevation of levels of liver transaminase levels
CPT/HCPCS: 47563; 88304; 74300; 76000; 76700; 80053; 82248; 83690; 85025; 85027; 99284; A4300